=== PATIENT | male | born 2000 | race Hispanic/Latino ===

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

== ENCOUNTER 2024-05-19 22:51 | Emergency (ER) | payer SELFPAY ==
[~2024-05-19] VITALS: Ht 180.3 cm; Wt 86.2 kg
[~2024-05-19 22:51] MED LIST: LORA10TA7 PO; MONT-39 PO
[2024-05-20] MEDS: cefTRIAXone 1G VIAL IM ONE (01:26)
[2024-05-20] MEDS: LIDOCAINE HCL-MPF 2% 5ML VIAL ONE (01:27)
[2024-05-20] MEDS: AZITHROMYCIN 250 MG TABLET PO ONE (01:27)
[2024-05-20 01:46] VITALS: BP 143/71; PULSE 69; RESP 18; O2SAT 100
== END 2024-05-20 01:42 | disposition home or self-care (01) ==
LOC: EDH 22:51
DX: Z20.2 Contact with and (suspected) exposure to infections with a predominantly sexual mode of transmission (principal); Z79.899 Other long term (current) drug therapy
CPT/HCPCS: 99283; 96372; J0696; J3490

== ENCOUNTER 2024-06-15 03:25 | Emergency (ER) | payer SELFPAY ==
[~2024-06-15] VITALS: Ht 175.3 cm; Wt 86.2 kg
[2024-06-15] MEDS: AZITHROMYCIN 250 MG TABLET PO ONE (06:34)
[2024-06-15] MEDS: cefTRIAXone 1G VIAL IVPB ONE (06:34)
[2024-06-15] MEDS ORDERED: AZIT250T9 PO (06:54)
[2024-06-15 06:57] VITALS: BP 102/58; PULSE 65; RESP 20; TEMP 98; O2SAT 98
== END 2024-06-15 07:03 | disposition home or self-care (01) ==
LOC: EDH 03:25
DX: Z11.3 Encounter for screening for infections with a predominantly sexual mode of transmission (principal); Z20.2 Contact with and (suspected) exposure to infections with a predominantly sexual mode of transmission; Z79.899 Other long term (current) drug therapy; Z90.49 Acquired absence of other specified parts of digestive tract
CPT/HCPCS: 99284; 96365; J0696